=== PATIENT | male | born 1970 | race African-American/Black ===

== ENCOUNTER 2019-07-27 07:11 | Emergency (ER) | payer MEDICAID ==
[~2019-07-27] VITALS: Ht 195.6 cm; Wt 143.0 kg
[2019-07-27 07:20] VITALS: BP 136/78
[2019-07-27] MEDS ORDERED: OXYCODONE HCL/ACETAMINOPHEN 5/325MG TABLET PO ONE (07:45)
[2019-07-27] MEDS ORDERED: KETOROLAC 60MG/2ML VIAL IM ONE (07:45)
== END 2019-07-27 08:35 | disposition home or self-care (01) ==
LOC: ER 07:11
DX: M54.2 Cervicalgia (principal); I10 Essential (primary) hypertension
CPT/HCPCS: 96372; 99283; J1885